=== PATIENT | female | born 1945 | race Caucasian/White ===

== ENCOUNTER 2022-11-30 13:56 | Emergency (ER) | payer OTHER, MEDICARE ==
[2022-11-30 14:57] VITALS: BP 154/69; PULSE 73; RESP 18; TEMP 98.5; BMI 34.2
[2022-11-30 15:26] LABS: ALBUMIN 4.5 g/dl (3.4-5.0); BILIRUBIN,TOTAL 0.9 mg/dl (0.2-1); BLOOD UREA NITROGEN 11.3 mg/dl (7-18); CALCIUM 9.3 mg/dl (8.5-10.1); CREATININE 0.7 mg/dl (0.6-1.3); MAGNESIUM 2.3 mg/dL (1.8-2.4); POTASSIUM 3.9 mmol/L (3.5-5.1); SGOT/AST 22.3 U/L (15-37); SGPT/ALT 16.2 U/L (7-52); TOT PROT 6.5 g/dl (6.4-8.2)
[2022-11-30 15:58] LABS: HEMATOCRIT 37.3 % (32.4-45.2); HEMOGLOBIN 12.6 G/dL (10.7-15.3); MCH 32.3 pg (25.7-33.7); MCHC 33.9 g/dl (32.0-36.0); MEAN CELL VOLUME 95.5 fl (80-96); MEAN PLT VOLUME 6.9 fl (7.5-11.1); PLATELET COUNT 278.4 10^3/uL (134-434); RBC 3.91 10^6/uL (3.60-5.2); RDW 14.8 % (11.6-15.6); WHITE BLOOD COUNT 5.5 10^3/uL (4.0-10.8)
[2022-11-30 21:26] LABS: PLATELET ESTIMATE ADEQUATE
== END 2022-11-30 16:32 | disposition home or self-care (01) ==
LOC: FER 13:56
DX: R20.2 Paresthesia of skin (principal)
CPT/HCPCS: 36415; 80053; 83735; 85027; 99283-25